=== PATIENT | female | born 1995 | race African-American/Black ===

== ENCOUNTER 2017-06-15 21:49 | Emergency (ER) | payer SELFPAY ==
[2017-06-15 21:58] VITALS: BP 129/75
[2017-06-15] MEDS ORDERED: IBUPROFEN 800 MG TABLET PO ONE (22:13)
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
== END 2017-06-15 22:34 | disposition home or self-care (01) ==
LOC: ER 21:49
DX: Z04.8 Encounter for examination and observation for other specified reasons (principal); Y04.8XXA Assault by other bodily force, initial encounter; Y92.009 Unspecified place in unspecified non-institutional (private) residence as the place of occurrence of the external cause; F17.200 Nicotine dependence, unspecified, uncomplicated
CPT/HCPCS: 99284